=== PATIENT | female | born 1965 | race Caucasian/White ===

== ENCOUNTER → 2016-11-06 14:35 | Outpatient (CLI) | payer MEDICAID ==
[2016-11-06 16:38] LABS: ERYTHROCYTE SEDIMENTATION RATE 13 mm/hr (0-30)
[2016-11-09 11:12] LABS: ANA REFLEX - DIRECT Negative (Negative)
[2016-11-09 12:11] LABS: BABESIA IGG <1:10 (Neg:<1:10); BABESIA IGM <1:10 (Neg:<1:10)
== END | disposition home or self-care (01) ==
LOC: D.LABREF 14:35
PROVIDERS: Student in an Organized Health Care Education/Training Program
DX: A94 Unspecified arthropod-borne viral fever (principal); R53.83 Other fatigue